=== PATIENT | female | born 1945 | race Caucasian/White ===

== ENCOUNTER → 2017-02-14 | Outpatient (CLI) | payer MEDICARE, OTHER | END | disposition disaster alternative care site (69) | LOC: GDIC 11:50 | DX: E11.8 Type 2 diabetes mellitus with unspecified complications (principal) | CPT/HCPCS: G0108 ==

== ENCOUNTER → 2017-03-14 | Outpatient (CLI) | payer MEDICARE, OTHER | END | disposition disaster alternative care site (69) | LOC: GNUT 02-27 10:20 | DX: E11.9 Type 2 diabetes mellitus without complications (principal) ==